=== PATIENT | female | born 1995 | race Caucasian/White ===

== ENCOUNTER → 2018-02-20 11:48 | Emergency (ER) | payer OTHER ==
[2018-02-20 12:58] VITALS: BP 103/67
--- NOTE | 2018-02-20 13:18 | UC ---
Respiratory Complaint HPI - HPI Summary HPI Summary: Pt c/o gradual onset of nasal and chest congestion X 3 days. Pt states cough is worsening with sinus pressure and pain. - History of Current Complaint Chief Complaint: UCRespiratory Stated Complaint: CONGESTION/COUGH Time Seen by Provider: 02/20/18 13:02 Hx Obtained From: Patient Hx Last Menstrual Period: 02/11/18 ?: No Onset/Duration: Gradual Onset, Lasting Days, Still Present Timing: Constant Severity Initially: Mild Severity Currently: Mild Pain Intensity: 0 Character: Cough: Nonproductive Aggravating Factors: Recumbent Position Alleviating Factors: Nothing Associated Signs And Symptoms: Positive: URI, Nasal Congestion - Risk Factors Pulmonary Embolism Risk Factors: Negative Cardiac Risk Factors: Negative Pseudomonas Risk Factors: Negative Tuberculosis Risk Factors: Negative - Allergies/Home Medications Allergies/Adverse Reactions: Allergies Allergy/AdvReac Type Severity Reaction Status Date / Time No Known Allergies Allergy Verified 02/20/18 12:53 PMH/Surg Hx/FS Hx/Imm Hx Previously Healthy: Yes - Surgical History Surgical History: None - Family History Known Family History: Positive: Cardiac Disease - Social History Occupation: Student Lives: Dormitory/Roommates Alcohol Use: Occasionally Substance Use Type: None Smoking Status (MU): Never Smoked Tobacco Have You Smoked in the Last Year: No Review of Systems Constitutional: Negative Skin: Negative Eyes: Negative ENT: Sinus Congestion Respiratory: Cough Cardiovascular: Negative Gastrointestinal: Negative Genitourinary: Negative Motor: Negative Neurovascular: Negative Musculoskeletal: Negative Neurological: Negative Psychological: Negative Is Patient Immunocompromised?: No All Other Systems Reviewed And Are Negative: Yes Physical Exam Triage Information Reviewed: Yes Appearance: Well-Appearing Vital Signs: Initial Vital Signs Temp 98.7 F 02/20/18 12:54 Pulse 59 02/20/18 12:54 Resp 18 02/20/18 12:54 BP 103/67 02/20/18 12:54 Pulse Ox 99 02/20/18 12:54 Vital Signs Reviewed: Yes Eye Exam: Normal ENT Exam: Other ENT: Positive: Nasal congestion Dental Exam: Normal Neck exam: Normal Respiratory Exam: Normal Cardiovascular Exam: Normal Musculoskeletal Exam: Normal Neurological Exam: Normal Psychological Exam: Normal Skin Exam: Normal UC Diagnostic Evaluation - Laboratory O2 Sat by Pulse Oximetry: 99 Respiratory Course/Dx - Differential Dx/Diagnosis Differential Diagnosis/HQI/PQRI: Bronchitis, Influenza Provider Diagnoses: viral syndrome Discharge - Sign-Out/Discharge Documenting (check all that apply): Discharge - Discharge Plan Condition: Stable Disposition: HOME Prescriptions: Albuterol HFA INHALER* [Ventolin HFA Inhaler*] 1 - 2 puff INH Q6H PRN #1 mdi PRN Reason: Sob/Wheezing Benzonatate CAP* [Tessalon 100 MG CAP*] 100 mg PO Q8H PRN #21 cap PRN Reason: Cough methylPREDNISolone TAB* [Medrol TAB*] 4 - 8 mg PO .SEE CHERI #1 cheri Pseudoephedrine HCl [Sudafed 24-Hour] 240 mg PO DAILY #5 tab.er.24h Patient Education Materials: Viral Syndrome (ED) Referrals: [facility] [Outside] Non Staff,Doctor [Primary Care Provider] - Additional Instructions: Please follow up with your PCP or return to clinic as needed. - Billing Disposition and Condition Condition: STABLE Disposition: HOME
== END | disposition home or self-care (01) ==
LOC: UCCORT 11:48
DX: B34.9 Viral infection, unspecified (principal); R09.81 Nasal congestion; R09.89 Other specified symptoms and signs involving the circulatory and respiratory systems; R51 Headache; R05 Cough
CPT/HCPCS: 99202; G0463